=== PATIENT | male | born 1955 | race Caucasian/White ===

== ENCOUNTER 2016-12-15 12:41 | Outpatient (CLI) ==
--- NOTE | 2016-12-15 14:05 | CT ---
EXAM: CT chest without contrast HISTORY: Shortness of breath with left lower lobe removed due to collapse. Patient with history of chronic obstructive pulmonary disease and cough. COMPARISON: None available TECHNIQUE: Serial axial images of the chest were obtained from the lung apices to the upper abdomen without contrast. These were viewed in multiple planes. FINDINGS: The thyroid is normal. The visualized vessels are unremarkable without aneurysm or steno sis. The heart is normal in size without pericardial effusion. There are no pathologically enlarge d mediastinal or hilar lymph nodes. There is leftward shift of the mediastinum consistent with volum e loss from prior surgery. There is no pneumothorax. There is nodular thickening along the surgical line in the left lung on c oronal image 85 and measures approximately 1.4 cm in greatest dimension. There is increased density soft tissue along the anterior left pleura measuring 0.6 cm in thickness on sagittal image 31 which correlates to the nodular appearance on image 21. There is minimal pleural nodularity otherwise con sistent with changes from prior surgery. There is emphysematous disease most pronounced on the righ t. There is no consolidation, nodule or mass. The airways are patent. The soft tissues in the upper abdomen demonstrate a 0.5 cm low attenuation lesion in the left hepati c lobe with a more central 0.9 cm low attenuation lesion in the right hepatic lobe on image 51, with Hounsfield units consistent with a cyst. Larger ovoid low attenuation lesion is noted in the right hepatic lobe measuring 1.6 x 1.2 cm with Hounsfield units consistent with a cyst. There is an exop hytic low attenuation lesion off the right kidney with indeterminate Hounsfield units measuring 3.1 x 3.8 cm. There is an additional anterior superior exophytic low attenuation lesion measuring 1.7 c m in diameter with Hounsfield units consistent with a cyst. The remaining soft tissues in the upper abdomen are unremarkable. The osseous structures are unremarkable. IMPRESSION: 1. There are postsurgical changes of the left lung with volume loss and mild leftward mediastinal s hift. There is thickening along the surgical site and along the left major fissure, most pronounced superiorly. This may represent scar tissue or soft tissue, but recommend obtaining additional outs deysi studies to evaluate for change. 2. Pleural-based ovoid soft tissue density adjacent to the anterior left chest wall is of unknown s ignificance and if prior is available for comparison this would aid in evaluation. 3. There is emphysematous disease of the bilateral lungs with no acute consolidation. 4. Low attenuation lesions in the liver and right kidney are most consistent with cysts. Hounsfiel d units are not definitive for the right well-marginated exophytic low attenuation lesion and proteinaceous versus h emorrhagic cyst is suspected. If further evaluation is clinically indicated, ultrasound may be obtai marisa.
== END 2016-12-15 12:42 | disposition home or self-care (01) ==
LOC: RAD 12:41
PROVIDERS: ATTEND Emergency Medicine
DX: R06.02 Shortness of breath (principal)

== ENCOUNTER 2017-03-13 11:38 | Outpatient (CLI) ==
[2017-03-13 12:14] LABS: BASOPHILS # (AUTO) 0.1 K/uL (0-0.2); BASOPHILS % (AUTO) 1.4 % (0.0-3.0); EOSINOPHILS # (AUTO) 0.2 K/ul (0.0-0.7); EOSINOPHILS % (AUTO) 4.5 % (0.0-7.0); HEMATOCRIT 47.3 % (42.0-52.0); HEMOGLOBIN 15.7 g/dl (14.0-18.0); IMMATURE GRANULOCYTE % (AUTO) 0.2 % (0.0-5.0); LYMPHOCYTES # (AUTO) 1.4 K/uL (0.60-3.4); LYMPHOCYTES % (AUTO) 29.4 (10.0-50.0); MEAN CORPUSCULAR HEMOGLOBIN 29.7 pg (27.0-31.0); MEAN CORPUSCULAR HGB CONC 33.2 (31.8-35.4); MEAN CORPUSCULAR VOLUME 89.6 fl (80.0-94.0); MONOCYTES # (AUTO) 0.6 K/uL (0.4-2.0); MONOCYTES % (AUTO) 11.7 (0-10); NEUTROPHILS # (AUTO) 2.6 K/ul (2.0-6.9); NEUTROPHILS % (AUTO) 52.8; PLATELET COUNT 227 10^3/uL (140-440); RED BLOOD COUNT 5.28 10^6/ul (4.70-6.10); WHITE BLOOD COUNT 4.86 K/ul (4.2-10.2)
[2017-03-13 12:58] LABS: ALBUMIN/GLOBULIN RATIO 1.05; ANION GAP 9.3; BILIRUBIN,TOTAL 0.39 mg/dL (0.00-1.20); BUN/CREATININE RATIO 13.76; CALCIUM 10.3 mg/dL (8.2-10.2); CHOL/HDL RATIO 4.8 (4.5-6.4); CREATININE 1.09 mg/dL (0.60-1.10); POTASSIUM 4.3 mmol/L (3.5-5.1); TOTAL PROTEIN 7.8 g/dL (5.8-8.1)
== END 2017-03-13 11:39 | disposition home or self-care (01) ==
LOC: LAB 11:38
PROVIDERS: ATTEND Emergency Medicine
DX: E78.5 Hyperlipidemia, unspecified (principal); I10 Essential (primary) hypertension; R73.9 Hyperglycemia, unspecified
CPT/HCPCS: 36415; 80053; 80061; 83036; 84443; 85025

== ENCOUNTER 2017-06-15 11:06 | Outpatient (CLI) ==
[2017-06-15 11:26] LABS: BASOPHILS # (AUTO) 0.1 K/uL (0-0.2); BASOPHILS % (AUTO) 1.2 % (0.0-3.0); EOSINOPHILS # (AUTO) 0.3 K/ul (0.0-0.7); EOSINOPHILS % (AUTO) 4.6 % (0.0-7.0); HEMATOCRIT 45.6 % (42.0-52.0); HEMOGLOBIN 15.4 g/dl (14.0-18.0); IMMATURE GRANULOCYTE % (AUTO) 0.2 % (0.0-5.0); LYMPHOCYTES # (AUTO) 1.6 K/uL (0.60-3.4); LYMPHOCYTES % (AUTO) 27.4 (10.0-50.0); MEAN CORPUSCULAR HEMOGLOBIN 29.3 pg (27.0-31.0); MEAN CORPUSCULAR HGB CONC 33.8 (31.8-35.4); MEAN CORPUSCULAR VOLUME 86.7 fl (80.0-94.0); MONOCYTES # (AUTO) 0.6 K/uL (0.4-2.0); MONOCYTES % (AUTO) 10.3 (0-10); NEUTROPHILS # (AUTO) 3.3 K/ul (2.0-6.9); NEUTROPHILS % (AUTO) 56.3; PLATELET COUNT 215 10^3/uL (140-440); RED BLOOD COUNT 5.26 10^6/ul (4.70-6.10); WHITE BLOOD COUNT 5.81 K/ul (4.2-10.2)
[2017-06-15 12:11] LABS: ALBUMIN/GLOBULIN RATIO 1.03; ANION GAP 13.1; BILIRUBIN,TOTAL 0.52 mg/dL (0.00-1.20); BUN/CREATININE RATIO 19.6; CALCIUM 10.5 mg/dL (8.2-10.2); CHOL/HDL RATIO 4.1 (4.5-6.4); CREATININE 1.02 mg/dL (0.60-1.10); POTASSIUM 4.1 mmol/L (3.5-5.1); TOTAL PROTEIN 7.9 g/dL (5.8-8.1)
== END 2017-06-15 11:07 | disposition home or self-care (01) ==
LOC: LAB 11:06
PROVIDERS: ATTEND Internal Medicine
DX: E78.5 Hyperlipidemia, unspecified (principal); E11.9 Type 2 diabetes mellitus without complications; I10 Essential (primary) hypertension
CPT/HCPCS: 36415; 80053; 80061; 83036; 84443; 85025

== ENCOUNTER 2017-10-11 12:39 | Outpatient (CLI) ==
--- NOTE | 2017-10-11 14:14 | CT ---
EXAM: CT left hip without contrast HISTORY: Left hip pain. COMPARISON: None TECHNIQUE: Serial axial images of the left hip were obtained without contrast. These were reviewed in multiple planes. FINDINGS: There is no lytic or blastic lesion. There is no displaced fracture or dislocation. There is minima l degenerative change in the left hip joint space. No significant osteophyte formation is identified . The osseous structures of the pelvis are unremarkable otherwise. The soft tissues in the pelvis d emonstrate diverticulosis. IMPRESSION: 1. Mild degenerative change of the left hip joint space with no cortical irregularity or displaced f racture. 2. Diverticulosis without diverticulitis.
== END 2017-10-11 12:40 | disposition home or self-care (01) ==
LOC: RAD 12:39
PROVIDERS: ATTEND Internal Medicine
DX: M25.552 Pain in left hip (principal)

== ENCOUNTER 2017-10-12 12:35 | Outpatient (CLI) ==
--- NOTE | 2017-10-12 13:44 | CT ---
Exam: CT of the right knee without intravenous contrast. Comparison: None available. Reason for exam: Knee pain. FINDINGS: No acute fracture or malalignment. Degenerative disease is seen with a well marginated oss eous density in the tibial spine. There is a small to moderately sized joint effusion with mild infl ammatory change. Impression: 1. No acute fracture or dislocation is seen in the right knee. 2. Moderately sized joint effusion with inflammatory change. If clinical concern exists for soft ti ssue injury, MRI may be performed. 3. Degenerative disease.
== END 2017-10-12 12:36 | disposition home or self-care (01) ==
LOC: RAD 12:35
PROVIDERS: ATTEND Internal Medicine
DX: M25.561 Pain in right knee (principal)

== ENCOUNTER 2017-12-12 12:25 | Outpatient (CLI) | END 2017-12-12 12:26 | disposition home or self-care (01) | LOC: LAB 12:25 | PROVIDERS: ATTEND Internal Medicine | DX: E78.5 Hyperlipidemia, unspecified (principal); E11.9 Type 2 diabetes mellitus without complications; I10 Essential (primary) hypertension; Z12.5 Encounter for screening for malignant neoplasm of prostate | CPT/HCPCS: 36415; 80053; 80061; 83036; 84443; 85025 ==